=== PATIENT | female | born 1980 | race Hispanic/Latino ===

== ENCOUNTER → 2025-03-02 | Outpatient (CLI) | payer BC ==
--- NOTE | 2025-03-02 16:14 | HMCSR ---
APPROVED REPORT EXAM: Two-dimensional and M-mode echocardiogram with Doppler and color Doppler. INDICATION ICD: R60.0 Localized edema 2D Dimensions RVDd3.4 cmLVEF(%)69.7 (>50%)LVED Vol(simp.)76.0 mL IVSd0.9 (0.7-1.1cm)FS(%)39 %LVES Vol(simp.)33.0 mL LVDd3.8 (3.8-5.6cm)LA (2D)2.3 (1.6-4.0cm)LVEF(%, simp.)57 % PWd0.9 (0.7-1.1cm)Ao Root(2D)2.6 (2.0-3.7cm)LA ESV INDEX (BP)24.94 mL/m2 LVDs2.3 (2.5-4.0cm)LVOT diam1.8 (1.8-2.4cm) IVC diam1.5 cm M-Mode Dimensions EPSS0.7 cm LA (MM)2.4 (1.6-4.0cm) Ao Root(MM)2.3 (2.0-3.7cm) Aortic Valve AoV Vmax1.4 m/Mary Peak GR7.9 mmHgLVOT Vmax0.8 m/s AoV VTI0.3 mAo Mean GR4.1 mmHgLVOT VTI0.18 m DAVID (VMAX)1.58 cm2AVA (VTI) 1.7 cm2 Mitral Valve MV E Vmax94.8 cm/sDECEL Eplz022 ms MV A Vmax90.1 cm/sP 1/2 T49 ms E/A ratio1.1MVA (PHT)4.5 cm2 TDI E/E' Medial8.3E/E' Lateral7.7 Medial E' Peak V11.49 cm/sLateral E' Peak V12.36 cm/s Pulmonary Valve PV Vmax1.0 m/sPV VTI0.23 mPV Mean GR2.9 mmHg PV Peak GR4.2 mmHg Tricuspid Valve TR Vmax1.9 m/sRVSP13.1 mmHg TR Peak GR14.3 mmHg Left Ventricle The left ventricle is normal size. There is normal LV segmental wall motion. There is normal left dalila tricular wall thickness. LVEF is 55-60%. The left ventricular diastolic function is normal. Right Ventricle The right ventricle is normal size. The right ventricular systolic function is normal. Atria The left atrium size is normal. The right atrium size is normal. Aortic Valve The aortic valve is normal in structure. No aortic regurgitation is present. There is no aortic valvu lar stenosis. Mitral Valve The mitral valve is normal in structure. There is no mitral valve regurgitation noted. There is no mi tral valve stenosis. Tricuspid Valve The tricuspid valve is normal in structure. There is no tricuspid valve regurgitation noted. Pulmonic Valve The pulmonary valve is normal in structure. There is no pulmonic valvular regurgitation. Great Vessels The aortic root is normal in size. The IVC is normal in size and collapses >50% with inspiration. Pericardium There is no pericardial effusion. Other Information Quality : Adequate Conclusion LVEF is 55-60%. There is normal LV segmental wall motion. The left ventricular diastolic function is normal. The aortic root is normal in size. There is no pericardial effusion.
== END | disposition home or self-care (01) ==
LOC: RAH 14:45
PROVIDERS: ATTEND Family Medicine
DX: R60.0 Localized edema (principal); D45 Polycythemia vera
CPT/HCPCS: 93306